=== PATIENT | male | born 1970 | race Caucasian/White ===

== ENCOUNTER 2017-12-03 16:08 | Emergency (ER) | payer SELFPAY ==
[2017-12-03] MEDS ORDERED: ASPIRIN 81 MG TABLET, CHEWABLE PO ONE (16:22)
--- NOTE | 2017-12-03 16:28 | ER Document Report ---
ED General - General Chief Complaint: Chest Pain Stated Complaint: CHEST PAIN Time Seen by Provider: 12/03/17 16:18 Mode of Arrival: Ambulatory Information source: Patient Notes: 47-year-old male no previous medical history but who also does not follow-up with primary care presents with complaints of chest pain intermittently since Saturday. Patient denies any fevers or chills denies any vomiting but admits to nausea with the pain he does admit to sweating with the chest pain, he notes initially he believed it was heartburn, patient denies any previous similar episodes notes his father of [place] TRAVEL OUTSIDE OF THE [place] IN LAST 30 DAYS: No - HPI Onset: Other - Intermittent over the past few days Onset/Duration: Intermittent Quality of pain: Achy Severity: Moderate Pain Level: 4 Associated symptoms: Body/muscle aches, Chest pain, Sweating Exacerbated by: Denies Relieved by: Denies Similar symptoms previously: No Recently seen / treated by doctor: No - Related Data Allergies/Adverse Reactions: Penicillins Allergy (Verified 12/03/17 16:09) Past Medical History - Social History Smoking Status: Current Every Day Smoker Cigarette use (# per day): Yes Chew tobacco use (# tins/day): No Smoking Education Provided: Yes - Patient counselled regarding cessation for 4 minutes Family History: Reviewed & Not Pertinent - Immunizations Immunizations up to date: Yes Review of Systems - Review of Systems Notes: REVIEW OF SYSTEMS: CONSTITUTIONAL : Admits to intermittent chills sweats EENT: Denies eye, ear, throat, or mouth pain or symptoms. Denies nasal or sinus congestion or discharge. Denies throat, tongue, or mouth swelling or difficulty swallowing. CARDIOVASCULAR: Admits to chest pain RESPIRATORY: Denies cough, cold, or chest congestion. Denies shortness of breath, difficulty breathing, or wheezing. GASTROINTESTINAL: Denies abdominal pain or distention. Denies nausea, vomiting , or diarrhea. Denies blood in vomitus, stools, or per rectum. Denies black, tarry stools. Denies constipation. GENITOURINARY: Denies difficulty urinating, painful urination, burning, frequency, blood in urine, or discharge. MUSCULOSKELETAL: Denies back or neck pain or stiffness. Denies joint pain or swelling. SKIN: Denies rash, lesions or sores. HEMATOLOGIC : Denies easy bruising or bleeding. LYMPHATIC: Denies swollen, enlarged glands. NEUROLOGICAL: Denies confusion or altered mental status. Denies passing out or loss of consciousness. Denies dizziness or lightheadedness. Denies headache. Denies weakness or paralysis or loss of use of either side. Denies problems with gait or speech. Denies sensory loss, numbness, or tingling. Denies seizures. PSYCHIATRIC: Denies anxiety or stress. Denies depression, suicidal ideation, or homicidal ideation. ALL OTHER SYSTEMS REVIEWED AND NEGATIVE. Dictation was performed using [employer] voice recognition software PHYSICAL EXAMINATION: GENERAL: Well-appearing, well-nourished and in no acute distress. HEAD: Atraumatic, normocephalic. EYES: Pupils equal round and reactive to light, extraocular movements intact, sclera anicteric, conjunctiva are normal. ENT: Nares patent, oropharynx clear without exudates. Moist mucous membranes. NECK: Normal range of motion, supple without lymphadenopathy LUNGS: Breath sounds clear to auscultation bilaterally and equal. No wheezes rales or rhonchi. HEART: Regular rate and rhythm without murmurs ABDOMEN: Soft, nontender, nondistended abdomen. No guarding, no rebound. No masses appreciated. Musculoskeletal: Normal range of motion, no pitting or edema. No cyanosis. NEUROLOGICAL: Cranial nerves grossly intact. Normal speech, normal gait. Normal sensory, motor exams PSYCH: Anxious tearful. SKIN: Warm, Dry, normal turgor, no rashes or lesions noted. Physical Exam - Vital signs Vitals: Pulse Ox 99 12/03/17 16:19 Course - Re-evaluation Re-evalutation: I immediately evaluated patient's EKG when he was brought back to the charge nurse, her concern for STEMI was confirmed by myself, there is obvious ST elevations noted in 2 3 and aVF mild reciprocal changes in aVL AVR, given the concerns of the STEMI or STEMI protocol has been started, 12/03/17 16:23 STEMI noted , elizabeth paged 12/03/17 16:37 Flight crew enroute 12/03/17 17:24 Patient has left [place] ED, with no complications medications were all given appropriately - Vital Signs Vital signs: Temp Pulse Resp BP Pulse Ox 99.4 F 17 120/91 H 100 12/03/17 17:01 12/03/17 17:01 12/03/17 17:01 12/03/17 17:01 - Laboratory Result Diagrams: 12/03/17 16:21 12/03/17 16:21 Laboratory results interpreted by me: 12/03/17 12/03/17 16:21 16:21 WBC 16.9 H Lymphocytes % 11.4 L Monocytes % 13.3 H Absolute Neutrophils 12.6 H Absolute Monocytes 2.3 H Chloride 94 L Carbon Dioxide 31 H Total Bilirubin 2.2 H Direct Bilirubin 0.8 H AST 154 H ALT 85 H Creatine Kinase 493 H - EKG Interpretation by Me EKG shows normal: [place], Intervals, QRS Complexes. abnormal: ST-T Waves Critical Care Note - Critical Care Note Total time excluding time spent on procedures (mins): 35 Comments: 35 minutes of critical care time spent in direct contact evaluating and reevaluating the patient, treating symptoms, reviewing labs and studies and speaking with family and consultants excluding any procedures Discharge - Discharge Clinical Impression: STEMI (ST elevation myocardial infarction) Qualifiers: Involved coronary artery: LAD coronary artery Qualified Code(s): I21.02 - ST elevation (STEMI) myocardial infarction involving left anterior descending coronary artery Condition: Fair Disposition: [facility]
[2017-12-03 16:36] LABS: ABSOLUTE BASOPHILS # (AUTO) 0.1 10^3/uL (0.0-0.2); ABSOLUTE LYMPHOCYTES (AUTO) 1.9 10^3/uL (0.5-4.7); ABSOLUTE MONOCYTES (AUTO) 2.3 10^3/uL (0.1-1.4); ABSOLUTE NEUT (AUTO) 12.6 10^3/uL (1.7-8.2); BASOPHILS % (AUTO) 0.8 % (0-2); HEMATOCRIT 44.8 % (37.9-51.0); HEMOGLOBIN 15.3 g/dL (13.5-17.0); LYMPHOCYTES % (AUTO) 11.4 % (13-45); MEAN CORPUSCULAR HEMOGLOBIN 32.1 pg (27.0-33.4); MEAN CORPUSCULAR HGB CONC 34.1 g/dL (32.0-36.0); MEAN CORPUSCULAR VOLUME 94 fl (80-97); MONOCYTES % (AUTO) 13.3 % (3-13); PLATELET COUNT 323 10^3/uL (150-450); RED BLOOD COUNT 4.75 10^6/uL (4.35-5.55); RED CELL DISTRIBUTION WIDTH 13.3 % (11.5-14.0); SEGMENTED NEUTROPHILS % (AUTO) 74.5 % (42-78); TOTAL CELLS COUNTED % (AUTO) 100 %; WHITE BLOOD COUNT 16.9 10^3/uL (4.0-10.5)
--- NOTE | 2017-12-03 16:42 | RADIOLOGY REPORT (SQ) ---
EXAM DESCRIPTION: CHEST SINGLE VIEW COMPLETED DATE/TIME: 12/03/2017 4:31 pm REASON FOR STUDY: chest pain COMPARISON: None. EXAM PARAMETERS: NUMBER OF VIEWS: One view. TECHNIQUE: Single frontal radiographic view of the chest acquired. RADIATION DOSE: NA LIMITATIONS: None. FINDINGS: LUNGS AND PLEURA: No opacities, masses or pneumothorax. No pleural effusion. MEDIASTINUM AND HILAR STRUCTURES: No masses. Contour normal. HEART AND VASCULAR STRUCTURES: Heart normal in size. Normal vasculature. BONES: No acute findings. HARDWARE: None in the chest. OTHER: No other significant finding. IMPRESSION: NO ACUTE RADIOGRAPHIC FINDING IN THE CHEST. TECHNICAL DOCUMENTATION: JOB ID: [id number] [employer]- All Rights Reserved Reading location - IP/workstation name: [email or web address]
[2017-12-03] MEDS ORDERED: ENOXAPARIN SODIUM INJ 80 MG/0.8 ML DISP.SYRIN SUBCUT ONE (16:45)
[2017-12-03] MEDS ORDERED: TENECTEPLASE INJ 50 MG KIT IV ONE (16:49)
[2017-12-03] MEDS ORDERED: CLOPIDOGREL BISULFATE 300 MG TABLET PO ONE (16:49)
[2017-12-03 16:55] LABS: ALANINE AMINOTRANSFERASE 85 U/L (21-72); ALBUMIN 4.2 g/dL (3.5-5.0); ALKALINE PHOSPHATASE 114 U/L (38-126); ANION GAP 13 (5-19); ASPARTATE AMINO TRANSFERASE 154 U/L (17-59); BILIRUBIN,DIRECT 0.8 mg/dL (0.0-0.4); BILIRUBIN,TOTAL 2.2 mg/dL (0.2-1.3); BLOOD UREA NITROGEN 13 mg/dL (7-20); CALCIUM 9.8 mg/dL (8.4-10.2); CARBON DIOXIDE 31 mmol/L (22-30); CHLORIDE 94 mmol/L (98-107); CREATINE KINASE 493 U/L (55-170); GLUCOSE 110 mg/dL (75-110); POTASSIUM 4.6 mmol/L (3.6-5.0); SODIUM 137.9 mmol/L (137-145); TOTAL PROTEIN 7.2 g/dL (6.3-8.2)
[2017-12-03 17:06] LABS: CREATINE KINASE MB 12.4 ng/mL (<4.55)
[2017-12-03 17:07] VITALS: BP 120/91
[2017-12-03 17:27] LABS: TROPONIN I 19.8 ng/mL
[2017-12-03] MEDS ORDERED: ENOXAPARIN SODIUM INJ 30 MG/0.3 ML DISP.SYRIN ONE (19:22)
[2017-12-03] MEDS ORDERED: ASPIRIN 81 MG TABLET, CHEWABLE ONE (19:22)
[2017-12-03] MEDS ORDERED: CLOPIDOGREL BISULFATE 300 MG TABLET ONE (19:22)
--- NOTE | 2017-12-03 22:34 | EKG REPORT ---
SEVERITY:- ABNORMAL ECG - SINUS TACHYCARDIA INFERIOR INFARCT, ACUTE PROBABLE POSTERIOR INFARCT : Confirmed by: Abel Bhatti 03-Dec-2017 22:33:34
--- NOTE | 2017-12-03 22:34 | EKG REPORT ---
SEVERITY:- ABNORMAL ECG - SINUS TACHYCARDIA SINUS PAUSE/ARREST W/ SUPRAVENTRICULAR ESCAPE INFERIOR INFARCT, ACUTE PROBABLE POSTERIOR INFARCT : Confirmed by: Abel Bhatti 03-Dec-2017 22:33:18
== END 2017-12-03 17:10 | disposition short-term general hospital (02) ==
LOC: ER 16:08
DX: I21.02 ST elevation (STEMI) myocardial infarction involving left anterior descending coronary artery (principal); R07.9 Chest pain, unspecified; R11.0 Nausea; R61 Generalized hyperhidrosis; R68.83 Chills (without fever); F41.9 Anxiety disorder, unspecified; F17.210 Nicotine dependence, cigarettes, uncomplicated; Z71.6 Tobacco abuse counseling; Z82.49 Family history of ischemic heart disease and other diseases of the circulatory system
CPT/HCPCS: 93005; 99406; 99291; 96372; 96374; 36415; 82553; 82550; 85025; 80053; 84484; 71045; 93010; J3490; J1650 ×2; J3101